=== PATIENT | male | born 1995 | race African-American/Black ===

== ENCOUNTER 2021-08-03 13:28 | Inpatient (IN) | payer MEDICARE, MEDICAID, SELFPAY ==
--- NOTE | 2021-08-03 14:04 | ED_ITS ---
HPI - Psych General Chief Complaint: Psychiatric Symptoms Stated Complaint: crisis Time Seen by Provider: 08/03/21 13:38 Source: patient and EMS Mode of arrival: EMS Limitations: no limitations History of Present Illness HPI Narrative: 25-year-old male with a past medical history of schizophrenia here with the reports of paranoia and homicidal ideations. Patient has been at respite and for unknown reasons he was evaluated by crisis today and was sent in on a Section 12. Patient tells me he always feels paranoid and always feels homicidal. He is not willing to tell me who he is feeling homicidal to. He denies suicidal thoughts. Denies hallucinations. He tells me he takes Thorazine for his mood but does not feel like he has a true diagnosis of schizophrenia. Denies any substance use. No physical complaints. Related Data Home Medications Medication Instructions Recorded Confirmed amoxicillin 250 mg capsule 1 cap PO TID 08/03/21 chlorpromazine 100 mg tablet 1 tab PO DAILY 08/03/21 08/03/21 chlorpromazine 100 mg tablet 2 tab PO BEDTIME 08/03/21 08/03/21 cholecalciferol (vitamin D3) 50 1 cap PO DAILY 08/03/21 08/03/21 mcg (2,000 unit) capsule (Vitamin D3) clonidine HCl 0.1 mg tablet 1 tab PO BEDTIME 08/03/21 08/03/21 cyanocobalamin (vitamin B-12) 1 tab PO DAILY 08/03/21 08/03/21 1,000 mcg tablet (Vitamin B-12) hydroxyzine pamoate 25 mg capsule 1 cap PO BID PRN 08/03/21 08/03/21 ibuprofen 800 mg tablet 1 tab PO Q8H PRN 08/03/21 melatonin 10 mg tablet 10 mg PO BEDTIME PRN 08/03/21 08/03/21 paliperidone palmitate 156 mg/mL 156 mg IM Q28D 08/03/21 08/03/21 intramuscular syringe (Invega Sustenna) Allergies Allergy/AdvReac Type Severity Reaction Status Date / Time trazodone [TRAZODONE] AdvReac Unknown CONFUSION Unverified 06/07/20 19:13 Review of Systems Review of Systems: Yes all other systems are reviewed and are negative Constitutional: Constitutional: Reports no additional constitutional complaints, Denies body ache(s), Denies chills, Denies fever(s), Denies headache(s) and Denies weakness Eyes: Eyes: Reports no additional eye complaints and Denies change in vision ENT: Reports system reviewed and no additional complaints, except as documented, Denies dizziness, Denies headache(s), Denies nasal congestion, Denies nasal discharge and Denies neck pain Cardiovascular: Cardiovascular: Reports no additional cardiovascular complaints, Denies chest pain, Denies leg edema and Denies dyspnea Respiratory: Respiratory: Reports no additional respiratory complaints, Denies cough and Denies dyspnea Gastrointestinal: Gastrointestinal: Reports no additional gastrointestinal complaints, Denies abdominal pain, Denies diarrhea, Denies nausea and Denies vomiting Genitourinary: Genitourinary: Denies urinary incontinence Musculoskeletal: Musculoskeletal: Reports no additional musculoskeletal complaints, Denies back pain, Denies arthralgias, Denies joint swelling, Denies neck pain, Denies numbness and Denies tingling Integumentary/Breasts: Skin/Breast: Reports system reviewed and no additional complaints, except as docu and Denies rash Neurologic: Reports system reviewed and no additional complaints, except as documented, Denies Abnormal speech present, Denies dizziness, Denies headache(s), Denies numbness, Denies tingling and Denies weakness Psychiatric: Psychiatric: Reports paranoia, Reports homicidal ideation and Denies suicidal ideation [facility] Past Medical History Attestation statement: The following information was validated with the patient. Source: old records reviewed and nursing notes reviewed Social History Social History Advance Directives: No Advance Directives Information Provided: No Physical Exam Vital Signs: Vital Signs: Last Vital Signs Temp 98.3 F 08/03/21 15:54 Pulse 85 08/03/21 15:54 Resp 20 08/03/21 15:54 BP 135/93 H 08/03/21 15:54 Pulse Ox 99 08/03/21 15:54 Body Mass Index 24.1 Const: General: cooperative, healthy appearing, comfortable and no acute distress Orientation/consciousness: patient oriented x3 Limitations: no limitations HENMT: Head: Yes normal to inspection Ears: hearing grossly normal bilaterally General nose exam: Normal external nose present Face and sinus: Yes normal facial exam Mouth: Normal oral and palatal mucosa present Throat: Yes posterior oropharynx normal Eyes: General: appearance normal, both eyes and all related structures Pupils: Equal, round and reactive pupils present Neck: Neck: Yes normal visual inspection Chest: Chest palpation & inspection: normal inspection of the chest Resp: Effort & Inspection: normal respiratory effort Auscultation: clear to auscultation bilaterally Cardio: Rate: regular rate Rhythm: regular rhythm Peripheral pulses: Peripheral pulses 2+ throughout GI: Inspection: Yes normal to inspection Palpation (GI): Soft to palpation and nontender Auscultation: normal bowel sounds Back/Spine/Pelvis: Thoracic/Lumbar Spine: thoracic and lumbar spine normal to inspection Skin: General skin exam: no rashes or lesions noted Neuro: General: patient oriented x3, no focal motor deficits and normal sensation to monofilament Cranial nerves: Yes CN's II-XII intact bilaterally and Yes Equal, round and reactive pupils present Cognition (Neuro): normal cognition Speech: No Abnormal speech present Gait exam (Neuro): Normal gait present Motor exam (neuro): 5/5 motor strength present throughout Extrem: General: Yes normal to inspection Psych: Other: Patient is withdrawn, flat affect Appearance: disheveled Course Course Course Narrative: 25-year-old male here with on a section 12 with reports of paranoia and homicidal ideation. No physical complaint. No concern for acute ingestion or trauma. Will check labs, drug screen, obtain crisis evaluation. 1930-placed in physician observation pending disposition/ [facility] - Psych Medical Records Attestation: I reviewed the patient's medical records. Lab Data Attestation: I reviewed the patient's lab results. Result diagrams: 08/03/21 14:14 08/03/21 14:14 Labs: Lab Results 08/03/21 08/03/21 08/03/21 Range/Units 14:04 14:14 14:14 WBC 7.6 (4.8-10.8) X10*3/uL RBC 4.62 (4.60-5.80) X10*6/uL Hgb 13.7 L (14.0-18.0) g/dl Hct 41.1 L (42.0-52.0) % MCV 89.0 (80.0-98.0) fL MCH 29.7 (27.0-33.0) pg MCHC 33.3 (31.0-36.0) g/dl RDW 11.9 (11.0-16.0) % Plt Count 341 (160-400) X10*3/uL MPV 8.7 L (9.4-12.4) fL Immature Gran % (Auto) 0.1 (0.0-0.4) % Neut % (Auto) 70.2 (45-73) % Lymph % (Auto) 23.4 (20-40) % [place] % (Auto) 5.8 (2-11) % Eos % (Auto) 0.4 (0-4) % Baso % (Auto) 0.1 (0-2) % Lymph # (Auto) 1.8 (1.2-4.9) X10*3/uL [place] # (Auto) 0.4 (0.1-1.2) X10*3/uL Eos # (Auto) 0.0 (0.0-0.4) X10*3/uL Baso # (Auto) 0.0 (0.0-0.2) X10*3/uL Abs Immat Gran (auto) 0.01 (0.00-0.03) X10*3/uL Absolute Neuts (auto) 5.4 (2.0-8.3) x10*3/uL Absolute Nucleated RBC 0.000 (0.0-0.012) X10*3/uL Nucleated RBC % (auto) 0.0 (0.0-0.2) /100WBC Sodium 142 (135-145) mmol/L Potassium 4.5 (3.3-5.1) mmol/L Chloride 103 (96-108) mmol/L Carbon Dioxide 30 H (22-29) mmol/L Anion Gap 14 (12-20) BUN 11 (9-16) mg/dL Creatinine 1.10 (0.5-1.4) mg/dL Estim Creat Clear Calc 85.9 Estimated GFR > 60 Random Glucose 90 (60-115) mg/dL Calcium 9.7 (8.4-10.2) mg/dL Total Bilirubin 0.5 (0.0-1.0) mg/dL Direct Bilirubin 0.2 (0.0-0.5) mg/dL AST 19 (5-37) U/L ALT 22 (0-40) U/L Alkaline Phosphatase 72 (39-117) U/L Total Protein 7.4 (6.5-8.0) g/dL Albumin 4.3 (3.5-5.0) g/dL Salicylates < 5.0 L (15-30) mg/dL Urine Opiates Screen Not Detected (Not Detect) Urine Fentanyl Screen Not Detected (Not Detect) Acetaminophen < 1 (<30) mcg/mL Ur Barbiturates Screen Not Detected (Not Detect) Ur Phencyclidine Scrn Not Detected (Not Detect) Ur Amphetamines Screen Not Detected (Not Detect) U Benzodiazepines Scrn Not Detected (Not Detect) Urine Cocaine Screen Not Detected (Not Detect) U Marijuana (THC) Screen Not Detected (Not Detect) Ethyl Alcohol mg/dL COVID-19 (TATO) (Negative) COVID-19 Clin Com 08/03/21 08/03/21 Range/Units 14:14 14:14 WBC (4.8-10.8) X10*3/uL RBC (4.60-5.80) X10*6/uL Hgb (14.0-18.0) g/dl Hct (42.0-52.0) % MCV (80.0-98.0) fL MCH (27.0-33.0) pg MCHC (31.0-36.0) g/dl RDW (11.0-16.0) % Plt Count (160-400) X10*3/uL MPV (9.4-12.4) fL Immature Gran % (Auto) (0.0-0.4) % Neut % (Auto) (45-73) % Lymph % (Auto) (20-40) % [place] % (Auto) (2-11) % Eos % (Auto) (0-4) % Baso % (Auto) (0-2) % Lymph # (Auto) (1.2-4.9) X10*3/uL [place] # (Auto) (0.1-1.2) X10*3/uL Eos # (Auto) (0.0-0.4) X10*3/uL Baso # (Auto) (0.0-0.2) X10*3/uL Abs Immat Gran (auto) (0.00-0.03) X10*3/uL Absolute Neuts (auto) (2.0-8.3) x10*3/uL Absolute Nucleated RBC (0.0-0.012) X10*3/uL Nucleated RBC % (auto) (0.0-0.2) /100WBC Sodium (135-145) mmol/L Potassium (3.3-5.1) mmol/L Chloride (96-108) mmol/L Carbon Dioxide (22-29) mmol/L Anion Gap (12-20) BUN (9-16) mg/dL Creatinine (0.5-1.4) mg/dL Estim Creat Clear Calc Estimated GFR Random Glucose (60-115) mg/dL Calcium (8.4-10.2) mg/dL Total Bilirubin (0.0-1.0) mg/dL Direct Bilirubin (0.0-0.5) mg/dL AST (5-37) U/L ALT (0-40) U/L Alkaline Phosphatase (39-117) U/L Total Protein (6.5-8.0) g/dL Albumin (3.5-5.0) g/dL Salicylates (15-30) mg/dL Urine Opiates Screen (Not Detect) Urine Fentanyl Screen (Not Detect) Acetaminophen (<30) mcg/mL Ur Barbiturates Screen (Not Detect) Ur Phencyclidine Scrn (Not Detect) Ur Amphetamines Screen (Not Detect) U Benzodiazepines Scrn (Not Detect) Urine Cocaine Screen (Not Detect) U Marijuana (THC) Screen (Not Detect) Ethyl Alcohol < 10 mg/dL COVID-19 (TATO) Negative (Negative) COVID-19 Clin Com See Note Discharge Plan Discharge Clinical Impression: Chronic schizophrenia Prescriptions: No Action clonidine HCl 0.1 mg tablet 1 tab PO BEDTIME RF: 0 ibuprofen 800 mg tablet 1 tab PO Q8H PRN (Reason: Pain) RF: 0 chlorpromazine 100 mg tablet 1 tab PO DAILY RF: 0 amoxicillin 250 mg capsule 1 cap PO TID RF: 0 hydroxyzine pamoate 25 mg capsule 1 cap PO BID PRN (Reason: Anxiety) RF: 0 Invega Sustenna 156 mg/mL syringe 156 mg IM Q28D RF: 0 chlorpromazine 100 mg tablet 2 tab PO BEDTIME RF: 0 cyanocobalamin (vitamin B-12) [Vitamin B-12] 1,000 mcg tablet 1 tab PO DAILY RF: 0 cholecalciferol (vitamin D3) [Vitamin D3] 50 mcg (2,000 unit) capsule 1 cap PO DAILY RF: 0 melatonin 10 mg Tablet 10 mg PO BEDTIME PRN (Reason: Insomnia) RF: 0
[2021-08-03 14:17] VITALS: BP 136/87; PULSE 90; RESP 16; TEMP 37.1; O2SAT 100; BMI 24.1
[2021-08-03 14:42] LABS: MANUAL DIFF FLAG NO
[2021-08-03 14:49] LABS: Basophils Percent Auto 0.1 % (0-2); Eosinophils Percent Auto 0.4 % (0-4); Hematocrit 41.1 % (42.0-52.0); Hemoglobin 13.7 g/dl (14.0-18.0); Imm Gran Abs Auto 0.01 X10*3/uL (0.00-0.03); Imm Gran Pct Auto 0.1 % (0.0-0.4); Lymphocytes Absolute Auto 1.8 X10*3/uL (1.2-4.9); Lymphocytes Percent Auto 23.4 % (20-40); Mean Corpuscular HGB Conc 33.3 g/dl (31.0-36.0); Mean Corpuscular Hemoglobin 29.7 pg (27.0-33.0); Mean Platelet Volume 8.7 fL (9.4-12.4); Monocytes Absolute Auto 0.4 X10*3/uL (0.1-1.2); Monocytes Percent Auto 5.8 % (2-11); Neutrophils Absolute Auto 5.4 x10*3/uL (2.0-8.3); Neutrophils Percent Auto 70.2 % (45-73); Platelet Count 341 X10*3/uL (160-400); Red Blood Count 4.62 X10*6/uL (4.60-5.80); Red Cell Distribution Width 11.9 % (11.0-16.0); White Blood Count 7.6 X10*3/uL (4.8-10.8)
[2021-08-03 15:03] LABS: Ethanol < 10 mg/dL
[2021-08-03 15:10] LABS: Amphetamine Screen Urine Not Detected (Not Detect); Barbiturates, Urine Not Detected (Not Detect); Benzodiazepines Screen Urine Not Detected (Not Detect); Cannabinoid Screen Urine Not Detected (Not Detect); Cocaine Screen Urine Not Detected (Not Detect); Fentanyl, urine Not Detected (Not Detect); Opiate Screen Urine Not Detected (Not Detect); Phencyclidine Screen Urine Not Detected (Not Detect)
[2021-08-03 15:14] LABS: Alanine Aminotransferase 22 U/L (0-40); Albumin Level 4.3 g/dL (3.5-5.0); Alkaline Phosphatase 72 U/L (39-117); Anion Gap 14 (12-20); Aspartate Amino Transferase 19 U/L (5-37); Bilirubin Direct 0.2 mg/dL (0.0-0.5); Bilirubin Total 0.5 mg/dL (0.0-1.0); Blood Urea Nitrogen 11 mg/dL (9-16); Calcium 9.7 mg/dL (8.4-10.2); Carbon Dioxide 30 mmol/L (22-29); Chloride 103 mmol/L (96-108); Creatinine Clr Calc Pharmacy 85.9; Estimated Glomerular Filt Rate > 60; Glucose Random 90 mg/dL (60-115); Potassium 4.5 mmol/L (3.3-5.1); Salicylate < 5.0 mg/dL (15-30); Sodium 142 mmol/L (135-145); Total Protein 7.4 g/dL (6.5-8.0)
[2021-08-03 15:26] LABS: COVID-19 Test Negative (Negative); IDNOW Serial# 9DD0AD1C
[2021-08-03 15:28] LABS: Acetaminophen LAB < 1 mcg/mL (<30)
--- NOTE | 2021-08-03 15:35 | PHA.MEDREC ---
Pharmacy Consult ? Medication Reconciliation Pharmacy has completed the medication reconciliation. Med rec was completed using respite form. Patient did fill an abx and ibuprofen, but is not confirming or denying it. Thanks Kiah Lopez Pharm D
[2021-08-03 15:54] VITALS: BP 135/93; PULSE 85; RESP 20; TEMP 36.8; O2SAT 99
[2021-08-03] MEDS: hydrOXYzine HCL 25 MG TABLET PO (16:15)
[2021-08-03] MEDS: chlorproMAZINE HCl 100 MG TABLET PO (16:15)
[2021-08-03] MEDS: Acetaminophen 325 MG TABLET 650 MG PO (17:59)
[2021-08-03 21:12] VITALS: BP 120/78; PULSE 79
[2021-08-03] MEDS: cloNIDine HCL 0.1 MG TABLET PO (21:12)
[2021-08-03] MEDS: chlorproMAZINE HCl 100 MG TABLET 200 MG PO (21:14)
[2021-08-03] MEDS: Melatonin 3 MG TABLET 9 MG PO (21:16)
[2021-08-03 21:18] VITALS: BP 120/78; PULSE 79; RESP 16; TEMP 36.6; O2SAT 99
[2021-08-04 00:02] VITALS: RESP 16
[2021-08-04 00:04] VITALS: PULSE 16
[2021-08-04 06:29] VITALS: BP 120/74; PULSE 78; RESP 16; TEMP 36.8; O2SAT 96
[2021-08-04] MEDS: Cyanocobalamin (Vitamin B-12) 1,000 MCG TABLET 1000 MCG PO (07:55)
[2021-08-04] MEDS: Cholecalciferol (Vitamin D3) 25 MCG TABLET 50 MCG PO (07:55)
[2021-08-04] MEDS: chlorproMAZINE HCl 100 MG TABLET PO (07:55)
[2021-08-04] MEDS: hydrOXYzine HCL 25 MG TABLET PO ×2 (07:58→20:31)
[2021-08-04] MEDS: OLANZapine 10 MG TABLET PO (08:17)
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
[2021-08-04] MEDS: Acetaminophen 325 MG TABLET 650 MG PO ×2 (13:44→18:56)
[2021-08-04 16:24] VITALS: BP 119/73; PULSE 84; RESP 20; TEMP 37.1; O2SAT 99
--- NOTE | 2021-08-04 18:58 | PC.NURSE ---
pt approaching nurses station, asking for tylenol for mouth pain and his PRN. pt with slight irritability that he did not have a PRN available at this time. informed of when his PRN is due next, pt attempting to disagree with t/w, that in respite he could get his PRN three times a day whenever he wanted, not timed . tp educated r/t medication admin. informed he can get the PRN at 2100. pt returned to his room at this time.
[2021-08-04 20:31] VITALS: BP 119/73; PULSE 84
[2021-08-04] MEDS: cloNIDine HCL 0.1 MG TABLET PO (20:31)
[2021-08-04] MEDS: chlorproMAZINE HCl 100 MG TABLET 200 MG PO (20:31)
[2021-08-04] MEDS: Melatonin 3 MG TABLET 9 MG PO (20:31)
[2021-08-04] MEDS: Calcium Carbonate 750 MG TAB.CHEW PO (23:34)
[2021-08-04 23:47] VITALS: BP 127/74; PULSE 81; RESP 17; TEMP 36.4; O2SAT 97
--- NOTE | 2021-08-05 | ECG_ITS ---
Test Reason : MEDCLEARANCE Blood Pressure : / mmHG Vent. Rate : 094 BPM Atrial Rate : 094 BPM P-R Int : 120 ms QRS Dur : 074 ms QT Int : 338 ms P-R-T Axes : 053 070 051 degrees QTc Int : 422 ms Normal sinus rhythm Normal ECG When compared with ECG of 16-APR-2017 14:50, No significant change was found Heart rate has increased Referred By: Generic ED Physician Electronically Signed By:MICHI PICKETT MD
[2021-08-05] MEDS: Acetaminophen 325 MG TABLET 650 MG PO ×2 (05:31→11:48)
--- NOTE | 2021-08-05 06:36 | PC.NURSE ---
Patient slept through the night, complain of HUITRON administered Tylenol 650 mg as ordered with + effect, behavior calm and quiet, mood depressed affect flat, medication compliant, disposition per [facility] is section 12 inpatient bed search with no update so far, VSS, will continue to monitor.
--- NOTE | 2021-08-05 07:35 | PC.NURSE ---
patient appears in no distress, respirations are even and unlabored patient appears in no distress
[2021-08-05] MEDS: Cholecalciferol (Vitamin D3) 25 MCG TABLET 50 MCG PO (08:23)
[2021-08-05] MEDS: Cyanocobalamin (Vitamin B-12) 1,000 MCG TABLET 1000 MCG PO (08:23)
[2021-08-05] MEDS: chlorproMAZINE HCl 100 MG TABLET PO (08:23)
[2021-08-05] MEDS: hydrOXYzine HCL 25 MG TABLET PO ×2 (08:27→20:50)
[2021-08-05 09:13] VITALS: BP 111/62; PULSE 88; TEMP 36.9; O2SAT 99
[2021-08-05] MEDS: Calcium Carbonate 750 MG TAB.CHEW PO (09:44)
[2021-08-05] MEDS: Acetaminophen 325 MG TABLET PO ×2 (14:21→18:40)
--- NOTE | 2021-08-05 15:18 | PC.NURSE ---
patient asked t/w to verify a script sent to [facility]
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
[2021-08-05 18:00] VITALS: RESP 18
[2021-08-05] MEDS: Ibuprofen 600 MG TABLET PO (18:43)
[2021-08-05] MEDS: Melatonin 3 MG TABLET 9 MG PO (20:50)
[2021-08-05] MEDS: cloNIDine HCL 0.1 MG TABLET PO (20:50)
[2021-08-05] MEDS: chlorproMAZINE HCl 100 MG TABLET 200 MG PO (20:50)
[2021-08-05 20:56] VITALS: BP 126/67; PULSE 73; RESP 18; TEMP 36.6; O2SAT 98
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
[2021-08-06 06:00] VITALS: BP 112/62; PULSE 96; RESP 16; TEMP 36.8; O2SAT 96
[2021-08-06] MEDS: Cholecalciferol (Vitamin D3) 25 MCG TABLET 50 MCG PO (08:31)
[2021-08-06] MEDS: Cyanocobalamin (Vitamin B-12) 1,000 MCG TABLET 1000 MCG PO (08:31)
[2021-08-06] MEDS: chlorproMAZINE HCl 100 MG TABLET PO (08:31)
--- NOTE | 2021-08-06 09:52 | MHC.CLN ---
Addendum entered by Jaclyn Rodriguez, ADRIANA 08/06/21 14:51: AGREE WITH PROVIDER'S ASSESSMENT BELOW WITH ADDITION OF BMI 24.1 WNL Original Note: RE: UNSURE WT LOSS PT STATES HE RECENTLY LOST 50 POUNDS PER NSG NOTE: He said he recently lost 50 pounds because I've been working two jobs at [employer] and [employer], I don't really have time to eat. But I'm gaining the weight back so it doesn't matter. WT FROM 2018 WAS 120 POUNDS (HE IS CURRENTLY 140 POUNDS) UNABLE TO PERFORM NFPE R/T PT'S THREATENING BEHAVIOR
[2021-08-06] MEDS: Ibuprofen 800 MG TABLET PO ×2 (11:43→20:46)
[2021-08-06] MEDS: LORazepam 1 MG TABLET PO ×3 (11:43→20:48)
--- NOTE | 2021-08-06 11:55 | PC.NURSE ---
Patient submitted 3 day notice.
[2021-08-06] MEDS: hydrOXYzine HCL 25 MG TABLET PO (13:38)
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
[2021-08-06] MEDS: chlorproMAZINE HCl 25 MG TABLET 50 MG PO ×2 (14:22→19:12)
[2021-08-06] MEDS: Acetaminophen 325 MG TABLET 650 MG PO (17:30)
[2021-08-06] MEDS: chlorproMAZINE HCl 100 MG TABLET 200 MG PO (20:46)
[2021-08-06 20:47] VITALS: BP 119/70; PULSE 101
[2021-08-06] MEDS: cloNIDine HCL 0.1 MG TABLET PO (20:47)
[2021-08-06] MEDS: Melatonin 3 MG TABLET 9 MG PO (20:48)
[2021-08-06 20:52] VITALS: BP 119/70; PULSE 101; TEMP 36.8; O2SAT 98
[2021-08-07] MEDS: hydrOXYzine HCL 50 MG TABLET PO ×2 (01:20→14:58)
[2021-08-07] MEDS: chlorproMAZINE HCl 25 MG TABLET 50 MG PO ×2 (01:20→12:32)
[2021-08-07 06:00] VITALS: BP 97/52; PULSE 86; RESP 99; TEMP 36.7; O2SAT 99
[2021-08-07] MEDS: Cholecalciferol (Vitamin D3) 25 MCG TABLET 50 MCG PO (08:31)
[2021-08-07] MEDS: LORazepam 1 MG TABLET PO ×4 (08:31→23:28)
[2021-08-07] MEDS: Cyanocobalamin (Vitamin B-12) 1,000 MCG TABLET 1000 MCG PO (08:31)
[2021-08-07] MEDS: chlorproMAZINE HCl 100 MG TABLET PO (08:31)
[2021-08-07] MEDS: Ibuprofen 800 MG TABLET PO ×2 (12:32→21:27)
[2021-08-07] MEDS: hydrOXYzine HCL 25 MG TABLET 75 MG PO (12:32)
--- NOTE | 2021-08-07 12:42 | HO.PSYCHPN ---
Subjective Subjective Date of Service: 08/07/21 Reason For Visit: Psychosis Interim History: found found in bed under covers, somnolent. states he is trying to put himself to sleep but the thorazine PRN did not do it. he declines a higher dose of thorazine PRN, however, and asks for a higher dose of hydroxyzine PRN. agrees. MD offers to give invega shot today, pt states he will wait until tomorrow. pt declines to answer further questions from , replying, thank you (interpreted to also mean good bye by this lyric writer) to several more questions about how his level of paranoia is compared with yesterday, etc. per staff, 3-day submitted yesterday, comes due thursday. anxious and paranoid. minor self-dialoguing. mistrustful of staff. using hydroxyzine and thorazine PRNs. slept reasonably well. Mental Status Exam Mental Status Exam Narrative: A&O. In bed, under covers, hair long, somnolent. Poor eye contact, inattentive. No Tics or Tremors. No abnormal involuntary movements. Withdrawn, suspicious, difficult to engage. Non-pressured speech, non-spontaneous with regular rate and rhythm, quiet volume and normal prosody. No prolonged speech latency or dysarthria. affect is blunted, hypo-intense, non-labile. no SI/HI/AVH expressed in brief interview. Diagnostics Vital Signs (24Hr): Vital Signs - 24 hr 08/06/21 20:47 08/06/21 20:52 08/07/21 06:00 Temperature 98.3 F 98.0 F Pulse Rate 101 H 101 H 86 Respiratory Rate 99 H Blood Pressure 119/70 119/70 97/52 L Pulse Oximetry 98 99 Body Mass Index 24.1 Labs Results: 08/03/21 14:14 08/03/21 14:14 Medications Medications Current Medications Acetaminophen (Acetaminophen 325 Mg Tablet) 650 mg PO Q6H PRN PRN Reason: Headache/Pain Mild Scale (1-3) Last Admin: 08/06/21 17:30 Dose: 650 mg Documented by: Al Hydroxide/Mg Hydroxide (Magnesium Hydrox/Alum Hydrox 30 Ml Oral.Susp) 30 ml PO Q6H PRN PRN Reason: Heartburn/Nausea Amoxicillin (Amoxicillin 250 Mg Capsule) 250 mg PO TID [facility] Stop: 08/09/21 20:59 Last Admin: 08/07/21 08:31 Dose: 250 mg Documented by: Calcium Carbonate (Calcium Carbonate 750 Mg Tab.Chew) 750 mg PO Q6H PRN PRN Reason: Heartburn Chlorpromazine HCl (Chlorpromazine Hcl 100 Mg Tablet) 100 mg PO DAILY [facility] Last Admin: 08/07/21 08:31 Dose: 100 mg Documented by: Chlorpromazine HCl (Chlorpromazine Hcl 100 Mg Tablet) 200 mg PO BEDTIME [facility] Last Admin: 08/06/21 20:46 Dose: 200 mg Documented by: Chlorpromazine HCl (Chlorpromazine Hcl 25 Mg Tablet) 50 mg PO Q4H PRN PRN Reason: paranoia Last Admin: 08/07/21 12:32 Dose: 50 mg Documented by: Clonidine HCl (Clonidine Hcl 0.1 Mg Tablet) 0.1 mg PO BEDTIME [facility]; Protocol Last Admin: 08/06/21 20:47 Dose: 0.1 mg Documented by: Cyanocobalamin (Cyanocobalamin (Vitamin B-12) 1,000 Mcg Tablet) 1,000 mcg PO DAILY [facility] Last Admin: 08/07/21 08:31 Dose: 1,000 mcg Documented by: Hydroxyzine HCl (Hydroxyzine Hcl 25 Mg Tablet) 75 mg PO Q4H PRN PRN Reason: Anxiety Last Admin: 08/07/21 12:32 Dose: 75 mg Documented by: Ibuprofen (Ibuprofen 800 Mg Tablet) 800 mg PO Q8H PRN PRN Reason: dental pain Last Admin: 08/07/21 12:32 Dose: 800 mg Documented by: Lorazepam (Lorazepam 1 Mg Tablet) 1 mg PO TID [facility] Last Admin: 08/07/21 08:31 Dose: 1 mg Documented by: Magnesium Hydroxide (Milk Of Magnesia 30 Ml Oral.Susp) 30 ml PO DAILY PRN PRN Reason: Constipation Melatonin (Melatonin 3 Mg Tablet) 10.5 mg PO BEDTIME PRN PRN Reason: Insomnia Nicotine Polacrilex (Nicotine Polacrilex 2 Mg Gum) 4 mg BUCCAL Q2H PRN PRN Reason: Nicotine Cravings Paliperidone Palmitate (Paliperidone Palmitate 234 Mg/1.5 Ml Syringe) 234 mg IM Q28D [facility] Vitamin D (Cholecalciferol (Vitamin D3) 25 Mcg Tablet) 50 mcg PO DAILY [facility] Last Admin: 08/07/21 08:31 Dose: 50 mcg Documented by: Allergies Allergies Allergy/AdvReac Type Severity Reaction Status Date / Time trazodone [TRAZODONE] AdvReac Unknown CONFUSION Unverified 06/07/20 19:13 Assessment & Plan Assessment & Plan (1) Chronic schizophrenia: Status: Acute Code(s): F20.9 - Schizophrenia, unspecified Assessment and Plan: No med changes were made during recent respite admission. Pt is on invega sustenna 156 mg [id number], next injection due 08/08/21. agrees to ativan 1 TID, thorazine 50 mg PRNs, and atarax 50 mg PRNs on first day in hospital, 08/06. also agrees to increase invega sustenna dosing to 234 mg as of 08/08. hydroxyzine PRNs increased to 75 mg each 08/07 per pt request. remains very delusional and paranoid, with threat delusions and h/o violence based on delusions. I spent minutes with the patient and/or on the patient floor today, greater than?50% of which was spent counseling/coordinating care. Reason for contiued inpatient stay Substantial Risk for: harm to others, inability to function and rapid decompensation
[2021-08-07] MEDS: Acetaminophen 325 MG TABLET 650 MG PO ×2 (13:15→23:27)
[2021-08-07] MEDS: OLANZapine 5 MG TABLET PO (14:57)
[2021-08-07] MEDS: chlorproMAZINE HCl 100 MG TABLET 200 MG PO ×2 (14:58→22:02)
[2021-08-07] MEDS: LORazepam 1 MG TABLET 2 MG PO (14:58)
[2021-08-07] MEDS: QUEtiapine Fumarate 50 MG TABLET PO (14:58)
--- NOTE | 2021-08-07 19:47 | PC.NURSE ---
Patient noticeably more anxious/paranoid/suspicious following interaction with dietary staff trying to obtain his lunch order. Patient was hostile, requested to enter own lunch order on computer pad, dismissed staff from his room. Auction Assistant approached patient, able to complete lunch request, offered PRN medication Thorazine 50mg and Atarax 75 mg. Patient accepted medication however continued to escalate as afternoon progressed. Patient continued paranoid, suspicious, demanding. Angry photographs of his mother were not in his wallet accusing staff of loosing them, verbally threatening stating those pictures mean more to me than life itself I want someone to feel the pain I feel. I will kill someone . Patient placed call to respite, stated they were kicking him out, packed up his belongings but would not go through his belongings to see if his pictures were there . Patient continued to escalate, demanding to see the doctor I haven't seen the doctor today I want to get out of here . Patient proceeded to punch wall, hit petition in phone area. Pushing exit doors in effort to elope from unit. MD notified of patient request, arrived to unit to speak with patient. Patient jumped on nursing station petition while community placement worker was speaking to providers. Security called to assist with patient. director of nursing informed patient he was able to return to respite. Patient requested and received multiple medications 1458 per MD order. Patient continued agitated, pushing on hallway doors, ambulating about unit. Went to room, attempted to barricade self in room, chairs removed from patient room. Patient continued restless, agitated although calmer as evening progressed. Observed to be sleeping approx 1800. sewage disposal worker from [facility] dropped off pictures of mother, placed in patient belonging bag in storage area.
--- NOTE | 2021-08-07 20:25 | PC.NURSE ---
report received. patient is in bed sleeping. snoring noted.
[2021-08-07] MEDS: Calcium Carbonate 750 MG TAB.CHEW PO (21:27)
[2021-08-07 22:00] VITALS: BP 138/81; PULSE 107; TEMP 36.2; O2SAT 99
[2021-08-07] MEDS: cloNIDine HCL 0.1 MG TABLET PO (22:00)
[2021-08-07] MEDS: Melatonin 3 MG TABLET 10.5 MG PO (22:02)
[2021-08-07 22:08] VITALS: BP 138/81; PULSE 107; TEMP 36.2; O2SAT 96
[2021-08-07 22:30] VITALS: BP 131/86; PULSE 107; O2SAT 100
--- NOTE | 2021-08-07 22:42 | PC.NURSE ---
chair restraint-placed in chair restraint at 2144. Patient woke up from a nap at 2109. Upon rising patient was tense. Reported continued paranoia ''I'm always paranoid'' Requesting something to eat and when offered foods available at this time became verbally upset with options offered. Due to presentation security called to unit. Initially responded well to security when attempting to problem solve how to obtain food from an outside sourse. Offered local options but declined and wanted to order from a specific restaurant but could not call in orders. Was allowed to use cell phone to access information. Pt became upset when order could not be placed stating it needed to be ordered on an sherlyn. Patient then began hitting hope near the patient phone area and slamming down handset of patient phone. Patient was loud and aggressive. Security took control of his flailing arms and escorted patient to his room. Plan that was stated out loud for patient and security to hear was to escort patient to his room and release his arms when in room. When arms released patient began to swing out at security and would not stop. Due to persistent behavior placed in restraint chair. When in restraint chair security asked to leave. Patient spoke with RN's about continued feelings of paranoia, wanting to eat and pain related to dental issues. Patient spoke about continued feelings of paranoia. Offered and accepted HS scheduled medications. Patient was released from restraints when breathing was in control and reported that he would ''not hurt anyone'' Allowed for metal engraver as well as VS to be taken. When able to express need to order food and how to do so was assisted by staff to obtain and receive order. Patient did not struggle when being placed in restraint chair nor did he when he was released. Hospitalist is aware of need for assessment and will do so when work load allows to do so. Is reporting continued tooth pain (is on antibiotic and motrin) and requested heated blanket due to muscle aches.
[2021-08-07 23:00] VITALS: BP 133/84; PULSE 89; O2SAT 99
[2021-08-07] MEDS: diphenhydrAMINE HCL 25 MG TABLET 50 MG PO (23:27)
[2021-08-07 23:50] VITALS: BP 133/81; PULSE 88; TEMP 36.6; O2SAT 99
[2021-08-07] MEDS: Baclofen 10 MG TABLET PO (23:56)
--- NOTE | 2021-08-08 01:46 | PC.NURSE ---
MD assessment. after chair restraint which was from 2144 to 2209 patient was seen by hospitalist and allowed VS to be taken. received food order. patient reported that ''sometime I lose it'' ''I sometimes feel like I don't have any control of my life'' verbalized concern about ''my bed being given away at respite'' and process reviewed as to need for mood stabilization and then referral to respite. also spoke about concerns about returning to work reporting multiple jobs at [employer] reporting ''[employer] is great but I'm on probation at [employer]'' ''I need my jobs'' patient was apologetic and thanked staff for spending time with him. patient continues with ''paranoid thoughts'' ''I don't feel like i can ever trust anyone, even you''
[2021-08-08 09:30] VITALS: BP 113/71; PULSE 84; RESP 18; TEMP 36.7; O2SAT 98
[2021-08-08] MEDS: Ibuprofen 800 MG TABLET PO ×2 (09:33→16:24)
[2021-08-08] MEDS: Cyanocobalamin (Vitamin B-12) 1,000 MCG TABLET 1000 MCG PO (09:35)
[2021-08-08] MEDS: Cholecalciferol (Vitamin D3) 25 MCG TABLET 50 MCG PO (09:35)
[2021-08-08] MEDS: LORazepam 1 MG TABLET PO ×2 (09:35→15:21)
[2021-08-08] MEDS: chlorproMAZINE HCl 100 MG TABLET PO (09:35)
[2021-08-08] MEDS: Acetaminophen 325 MG TABLET 975 MG PO (13:19)
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
[2021-08-08] MEDS: chlorproMAZINE HCl 25 MG TABLET 50 MG PO (16:24)
[2021-08-08] MEDS: chlorproMAZINE HCl 100 MG TABLET 300 MG PO (16:45)
[2021-08-08] MEDS: LORazepam 1 MG TABLET 2 MG PO (16:46)
[2021-08-08] MEDS: Baclofen 10 MG TABLET PO (19:07)
[2021-08-08 22:13] VITALS: RESP 16
[2021-08-09] MEDS: chlorproMAZINE HCl 100 MG TABLET 200 MG PO (01:19)
[2021-08-09 01:20] VITALS: BP 125/86; PULSE 100
[2021-08-09] MEDS: Ibuprofen 800 MG TABLET PO ×3 (01:20→17:09)
[2021-08-09] MEDS: cloNIDine HCL 0.1 MG TABLET PO ×2 (01:20→20:04)
[2021-08-09] MEDS: Melatonin 3 MG TABLET 10.5 MG PO ×2 (01:21→20:12)
[2021-08-09] MEDS: LORazepam 1 MG TABLET PO ×4 (01:21→20:03)
[2021-08-09] MEDS: diphenhydrAMINE HCL 25 MG TABLET 50 MG PO ×2 (01:21→20:04)
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
[2021-08-09 09:58] VITALS: BP 120/81; PULSE 108; RESP 16; TEMP 36.7; O2SAT 99
[2021-08-09] MEDS: chlorproMAZINE HCl 100 MG TABLET PO ×2 (10:01→17:09)
[2021-08-09] MEDS: Cholecalciferol (Vitamin D3) 25 MCG TABLET 50 MCG PO (10:01)
[2021-08-09] MEDS: Cyanocobalamin (Vitamin B-12) 1,000 MCG TABLET 1000 MCG PO (10:02)
[2021-08-09] MEDS: Paliperidone Palmitate 234 MG/1.5 ML SYRINGE IM (10:18)
--- NOTE | 2021-08-09 14:02 | HO.PSYCHPN ---
Subjective Subjective Date of Service: 08/09/21 Reason For Visit: Psychosis Interim History: pt willing to receive IM invega 234 mg, given today. wanting to leave the hospital today, c/o feeling bored. somewhat labile and irritable, begins banging his head lightly against the wall and ends up yelling at MD and ronni delaney, then walks off down the [place]. later called by YASHIRA houston to meet with her and pt per pt's request. pt asks that if he retracts his 3-day notice and exhibits no violence between now and thursday morning, will MD discharge him. MD agrees, provided his outpt team is willing to accept him, which they are, according to report by YASHIRA. interview ended, pt retracts 3-day. pt then approaches MD and calls MD an asshole for knowing MD would not discharge him today and not telling him that yesterday. MD responds that MD did inform pt repeatedly yesterday that MD did not feel comfortable discharging pt today. per staff, less anxious and paranoid. worried about losing his job. slept 8-1, up for a time at 1:30, then back to sleep. Mental Status Exam Mental Status Exam Narrative: A&O. up and about on the unit. fair eye contact, attentive. No Tics or Tremors. No abnormal involuntary movements. suspicious, difficult to engage. Non-pressured speech, spontaneous with regular rate and rhythm, normal volume and normal prosody. No prolonged speech latency or dysarthria. affect is constricted, variably intense, labile. no SI/HI/AVH expressed. Diagnostics Vital Signs (24Hr): Vital Signs - 24 hr 08/08/21 22:13 08/09/21 01:20 08/09/21 09:58 Temperature 98.1 F Pulse Rate 100 108 H Respiratory Rate 16 16 Blood Pressure 125/86 120/81 Pulse Oximetry 99 Body Mass Index 24.1 Labs Results: 08/03/21 14:14 08/03/21 14:14 Medications Medications Current Medications Acetaminophen (Acetaminophen 325 Mg Tablet) 975 mg PO Q6H PRN PRN Reason: Headache/Pain Mild Scale (1-3) Last Admin: 08/08/21 13:19 Dose: 975 mg Documented by: Al Hydroxide/Mg Hydroxide (Magnesium Hydrox/Alum Hydrox 30 Ml Oral.Susp) 30 ml PO Q6H PRN PRN Reason: Heartburn/Nausea Amoxicillin (Amoxicillin 250 Mg Capsule) 250 mg PO TID [facility] Stop: 08/09/21 20:59 Last Admin: 08/09/21 10:01 Dose: 250 mg Documented by: Calcium Carbonate (Calcium Carbonate 750 Mg Tab.Chew) 750 mg PO Q6H PRN PRN Reason: Heartburn Last Admin: 08/07/21 21:27 Dose: 750 mg Documented by: Chlorpromazine HCl (Chlorpromazine Hcl 100 Mg Tablet) 100 mg PO DAILY [facility] Last Admin: 08/09/21 10:01 Dose: 100 mg Documented by: Chlorpromazine HCl (Chlorpromazine Hcl 25 Mg Tablet) 50 mg PO Q4H PRN PRN Reason: paranoia Last Admin: 08/08/21 16:24 Dose: 50 mg Documented by: Chlorpromazine HCl (Chlorpromazine Hcl 100 Mg Tablet) 300 mg PO BEDTIME [facility] Chlorpromazine HCl (Chlorpromazine Hcl 100 Mg Tablet) 100 mg PO DAILY@1500 [facility] Clonidine HCl (Clonidine Hcl 0.1 Mg Tablet) 0.1 mg PO BEDTIME [facility]; Protocol Last Admin: 08/09/21 01:20 Dose: 0.1 mg Documented by: Cyanocobalamin (Cyanocobalamin (Vitamin B-12) 1,000 Mcg Tablet) 1,000 mcg PO DAILY [facility] Last Admin: 08/09/21 10:02 Dose: 1,000 mcg Documented by: Diphenhydramine HCl (Diphenhydramine Hcl 25 Mg Tablet) 50 mg PO BEDTIME PRN PRN Reason: inaomnia Last Admin: 08/09/21 01:21 Dose: 50 mg Documented by: Ibuprofen (Ibuprofen 800 Mg Tablet) 800 mg PO Q8H [facility] Last Admin: 08/09/21 10:02 Dose: 800 mg Documented by: Lorazepam (Lorazepam 1 Mg Tablet) 1 mg PO TID [facility] Last Admin: 08/09/21 10:02 Dose: 1 mg Documented by: Magnesium Hydroxide (Milk Of Magnesia 30 Ml Oral.Susp) 30 ml PO DAILY PRN PRN Reason: Constipation Melatonin (Melatonin 3 Mg Tablet) 10.5 mg PO BEDTIME PRN PRN Reason: Insomnia Last Admin: 08/09/21 01:21 Dose: 10.5 mg Documented by: Nicotine Polacrilex (Nicotine Polacrilex 2 Mg Gum) 4 mg BUCCAL Q2H PRN PRN Reason: Nicotine Cravings Vitamin D (Cholecalciferol (Vitamin D3) 25 Mcg Tablet) 50 mcg PO DAILY [facility] Last Admin: 08/09/21 10:01 Dose: 50 mcg Documented by: Allergies Allergies Allergy/AdvReac Type Severity Reaction Status Date / Time trazodone [TRAZODONE] AdvReac Unknown CONFUSION Unverified 06/07/20 19:13 Assessment & Plan Assessment & Plan (1) Chronic schizophrenia: Status: Acute Code(s): F20.9 - Schizophrenia, unspecified Assessment and Plan: No med changes were made during recent respite admission. Pt is on invega sustenna 156 mg [id number], next injection due 08/08/21. agrees to ativan 1 TID, thorazine 50 mg PRNs, and atarax 50 mg PRNs on first day in hospital, 08/06. also agrees to increase invega sustenna dosing to 234 mg as of 08/08. hydroxyzine PRNs increased to 75 mg each 08/07 per pt request. due to c/o blurry vision, hydroxyzine DC'ed as of 08/08. as of 08/09, thorazine dosing increased. sustenna 234 mg given 08/09. remains very delusional and paranoid, with threat delusions and h/o violence based on delusions. I spent minutes with the patient and/or on the patient floor today, greater than?50% of which was spent counseling/coordinating care. Reason for contiued inpatient stay Substantial Risk for: harm to others, inability to function and rapid decompensation
--- NOTE | 2021-08-09 14:43 | PC.NURSE ---
Patient was visibly upset and emotional during parts of the shift due to being told he would not be discharged today. Patient was verbally upset, but remained in behavioral control. Patient talked to staff members and made phone calls to [facility] and [facility] personal. Patient observed in room majority of shift after being told this information.
[2021-08-09] MEDS: chlorproMAZINE HCl 100 MG TABLET 300 MG PO (20:03)
[2021-08-09 20:04] VITALS: BP 151/76; PULSE 125
[2021-08-09 20:10] VITALS: BP 151/76; PULSE 125; RESP 20; TEMP 36.6; O2SAT 95
[2021-08-10] MEDS: Magnesium Hydrox/Alum Hydrox 30 ML ORAL.SUSP PO (03:19)
[2021-08-10] MEDS: Calcium Carbonate 750 MG TAB.CHEW PO (03:19)
--- NOTE | 2021-08-10 06:12 | PC.NURSE ---
Patient awake at 0600. Patient reported that he had a bad dream where the voices where telling him he should not be here in the hospital. Patient stated that no one cares about him. Patient gently banged head against the wall twice then walked to his room and climbed back into bed.
--- NOTE | 2021-08-10 07:36 | PC.NURSE ---
patient continues upset with continued hospitalization. reports having nightmares and experiencing hallucinations in which patient states ''that's not normal for me'' ''i feel like I have no control and that everyone thinks they know what's best for me'' able to express self ''I know I need to keep it together so I can leave Thursday''
[2021-08-10] MEDS: Ibuprofen 800 MG TABLET PO ×2 (08:42→16:26)
[2021-08-10] MEDS: LORazepam 1 MG TABLET PO ×3 (08:42→20:27)
[2021-08-10] MEDS: Cyanocobalamin (Vitamin B-12) 1,000 MCG TABLET 1000 MCG PO (08:42)
[2021-08-10] MEDS: Cholecalciferol (Vitamin D3) 25 MCG TABLET 50 MCG PO (08:42)
[2021-08-10] MEDS: chlorproMAZINE HCl 100 MG TABLET PO (08:43)
[2021-08-10 16:28] VITALS: BP 135/78; PULSE 119; RESP 16; TEMP 36.5; O2SAT 99
[2021-08-10] MEDS: Acetaminophen 325 MG TABLET 975 MG PO (17:51)
[2021-08-10] MEDS: Benzocaine 20 % Oral Gel 9 GM TUBE 1 APPL MUCOUS MEM ×2 (17:51→19:06)
[2021-08-10] MEDS: chlorproMAZINE HCl 25 MG TABLET 50 MG PO (18:29)
[2021-08-10] MEDS: chlorproMAZINE HCl 100 MG TABLET 300 MG PO (20:26)
[2021-08-10 20:28] VITALS: BP 122/69; PULSE 94
[2021-08-10] MEDS: cloNIDine HCL 0.1 MG TABLET PO (20:28)
[2021-08-10 20:32] VITALS: BP 122/69; PULSE 94; TEMP 37.1; O2SAT 98
[2021-08-10] MEDS: Melatonin 3 MG TABLET 10.5 MG PO (20:36)
--- NOTE | 2021-08-10 20:41 | PC.NURSE ---
HS THORAZINE-ONLY TOOK 200 MG OF 300 MG PRESCRIBE THORAZINE. REPORTS THAT IT CAUSES HIM TO BE TOO SEDATED.
--- NOTE | 2021-08-10 23:57 | HO.PSYCHPN ---
Subjective Subjective Date of Service: 08/10/21 Reason For Visit: Psychosis Interim History: Seen and discussed with team. Pt received Invega Sustena yesterday. He continues to feel irritable. He is focused on DC. He says the medications he gets (Thorazine) makes him hallucinate. He reports he was seeing a dog. He has not been aggressive today. He seems on edge. This service writer told patient that primary team will make final decision re discharge. Denies SI. 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, headache GI: No c/o Nausea, Vomiting, diarrhea, constipation or heartburn -Denies hx of seizures -Denies hx of TBI/ concussion -Denies hx of cardiac issues Yes all other systems are reviewed and are negative Constitutional: Reports no additional constitutional complaints, Denies body ache(s), Denies chills, Denies fever(s), Denies headache(s) and Denies weakness Eyes: Reports no additional eye complaints and Denies change in vision Reports system reviewed and no additional complaints, except as documented, Denies dizziness, Denies headache(s), Denies nasal congestion, Denies nasal discharge and Denies neck pain Cardiovascular: Reports no additional cardiovascular complaints, Denies chest pain, Denies leg edema and Denies dyspnea Respiratory: Reports no additional respiratory complaints, Denies cough and Denies dyspnea Gastrointestinal: Reports no additional gastrointestinal complaints, Denies abdominal pain, Denies diarrhea, Denies nausea and Denies vomiting Genitourinary: Denies urinary incontinence Musculoskeletal: Reports no additional musculoskeletal complaints, Denies back pain, Denies arthralgias, Denies joint swelling, Denies neck pain, Denies numbness and Denies tingling Skin/Breast: Reports system reviewed and no additional complaints, except as docu and Denies rash Reports system reviewed and no additional complaints, except as documented, Denies Abnormal speech present, Denies dizziness, Denies headache(s), Denies numbness, Denies tingling and Denies weakness Psychiatric: Reports paranoia, Reports homicidal ideation and Denies suicidal ideation Mental Status Exam Mental Status Exam Narrative: A&O. up and about on the unit. fair eye contact, attentive. No Tics or Tremors. No abnormal involuntary movements. Irritable, suspicious, difficult to engage. Non-pressured speech, spontaneous with regular rate and rhythm, normal volume and normal prosody. No prolonged speech latency or dysarthria. affect is constricted, variably intense, labile. no SI/HI/AVH expressed. Diagnostics Vital Signs (24Hr): Vital Signs - 24 hr 08/10/21 16:28 08/10/21 20:28 08/10/21 20:32 Temperature 97.7 F 98.7 F Pulse Rate 119 H 94 94 Respiratory Rate 16 Blood Pressure 135/78 122/69 122/69 Pulse Oximetry 99 98 Body Mass Index 24.1 Labs Results: 08/03/21 14:14 08/03/21 14:14 Medications Medications Current Medications Acetaminophen (Acetaminophen 325 Mg Tablet) 975 mg PO Q6H PRN PRN Reason: Headache/Pain Mild Scale (1-3) Last Admin: 08/10/21 17:51 Dose: 975 mg Documented by: Al Hydroxide/Mg Hydroxide (Magnesium Hydrox/Alum Hydrox 30 Ml Oral.Susp) 30 ml PO Q6H PRN PRN Reason: Heartburn/Nausea Last Admin: 08/10/21 03:19 Dose: 30 ml Documented by: Benzocaine (Benzocaine 20 % Oral Gel 9 Gm Tube) 1 appl MUCOUS MEM QID PRN; Protocol PRN Reason: tooth pain Last Admin: 08/10/21 19:06 Dose: 1 appl Documented by: Calcium Carbonate (Calcium Carbonate 750 Mg Tab.Chew) 750 mg PO Q6H PRN PRN Reason: Heartburn Last Admin: 08/10/21 03:19 Dose: 750 mg Documented by: Chlorpromazine HCl (Chlorpromazine Hcl 100 Mg Tablet) 100 mg PO DAILY [facility] Last Admin: 08/10/21 08:43 Dose: 100 mg Documented by: Chlorpromazine HCl (Chlorpromazine Hcl 25 Mg Tablet) 50 mg PO Q4H PRN PRN Reason: paranoia Last Admin: 08/10/21 18:29 Dose: 50 mg Documented by: Chlorpromazine HCl (Chlorpromazine Hcl 100 Mg Tablet) 300 mg PO BEDTIME [facility] Last Admin: 08/10/21 20:26 Dose: 200 mg Documented by: Chlorpromazine HCl (Chlorpromazine Hcl 100 Mg Tablet) 100 mg PO DAILY@1500 [facility] Last Admin: 08/10/21 15:42 Dose: Not Given Documented by: Clonidine HCl (Clonidine Hcl 0.1 Mg Tablet) 0.1 mg PO BEDTIME NOEL; Protocol Last Admin: 08/10/21 20:28 Dose: 0.1 mg Documented by: Cyanocobalamin (Cyanocobalamin (Vitamin B-12) 1,000 Mcg Tablet) 1,000 mcg PO DAILY [facility] Last Admin: 08/10/21 08:42 Dose: 1,000 mcg Documented by: Diphenhydramine HCl (Diphenhydramine Hcl 25 Mg Tablet) 50 mg PO BEDTIME PRN PRN Reason: inaomnia Last Admin: 08/09/21 20:04 Dose: 50 mg Documented by: Ibuprofen (Ibuprofen 800 Mg Tablet) 800 mg PO Q8H [facility] Last Admin: 08/10/21 16:26 Dose: 800 mg Documented by: Lorazepam (Lorazepam 1 Mg Tablet) 1 mg PO TID [facility] Last Admin: 08/10/21 20:27 Dose: 1 mg Documented by: Magnesium Hydroxide (Milk Of Magnesia 30 Ml Oral.Susp) 30 ml PO DAILY PRN PRN Reason: Constipation Melatonin (Melatonin 3 Mg Tablet) 10.5 mg PO BEDTIME PRN PRN Reason: Insomnia Last Admin: 08/10/21 20:36 Dose: 10.5 mg Documented by: Nicotine Polacrilex (Nicotine Polacrilex 2 Mg Gum) 4 mg BUCCAL Q2H PRN PRN Reason: Nicotine Cravings Vitamin D (Cholecalciferol (Vitamin D3) 25 Mcg Tablet) 50 mcg PO DAILY [facility] Last Admin: 08/10/21 08:42 Dose: 50 mcg Documented by: Allergies Allergies Allergy/AdvReac Type Severity Reaction Status Date / Time trazodone [TRAZODONE] AdvReac Unknown CONFUSION Unverified 06/07/20 19:13 Assessment & Plan Assessment & Plan (1) Chronic schizophrenia: Status: Acute Code(s): F20.9 - Schizophrenia, unspecified Assessment and Plan: No med changes were made during recent respite admission. Pt is on invega sustenna 156 mg [id number], next injection due 08/08/21. agrees to ativan 1 TID, thorazine 50 mg PRNs, and atarax 50 mg PRNs on first day in hospital, 08/06. also agrees to increase invega sustenna dosing to 234 mg as of 08/08. hydroxyzine PRNs increased to 75 mg each 08/07 per pt request. due to c/o blurry vision, hydroxyzine DC'ed as of 08/08. as of 08/09, thorazine dosing increased. sustenna 234 mg given 08/09. remains very delusional and paranoid, with threat delusions and h/o violence based on delusions. I spent minutes with the patient and/or on the patient floor today, greater than?50% of which was spent counseling/coordinating care. Reason for contiued inpatient stay Substantial Risk for: harm to others and rapid decompensation
[2021-08-11 06:00] VITALS: BP 113/55; PULSE 87; RESP 16; TEMP 37.1; O2SAT 98
[2021-08-11] MEDS: LORazepam 1 MG TABLET PO ×3 (06:11→21:11)
[2021-08-11] MEDS: chlorproMAZINE HCl 25 MG TABLET 50 MG PO ×2 (06:12→12:28)
[2021-08-11] MEDS: Cyanocobalamin (Vitamin B-12) 1,000 MCG TABLET 1000 MCG PO (08:55)
[2021-08-11] MEDS: chlorproMAZINE HCl 100 MG TABLET PO ×2 (08:55→14:49)
[2021-08-11] MEDS: Ibuprofen 800 MG TABLET PO ×2 (08:55→17:17)
[2021-08-11] MEDS: Cholecalciferol (Vitamin D3) 25 MCG TABLET 50 MCG PO (08:55)
[2021-08-11] MEDS: Acetaminophen 325 MG TABLET 975 MG PO (15:40)
--- NOTE | 2021-08-11 16:05 | P.PNPSI_ITS ---
Subjective Subjective Date of Service: 08/11/21 Reason For Visit: Psychosis Interim History: Seen and discussed with team. Pt received Invega Ana 08/09/21. Patient seen in his room. He feels depressed. Says he feels like he is being lied to by everyone. He says he tried reaching his [employer] workers and they have not returned his call. Says he wants to leave but has no where to go. He says all people care about is that he hears voices and no one cares about his depression. Doesn't want to try a medication with antidepressant effects because you will keep me here longer . He took 200 mg Thorazine last night and he didn't complain of hallucinations as he did the night before. He has not been aggressive today. More subdued and depressed. Ambivalent about DC. 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, headache GI: No c/o Nausea, Vomiting, diarrhea, constipation or heartburn -Denies hx of seizures -Denies hx of TBI/ concussion -Denies hx of cardiac issues Yes all other systems are reviewed and are negative Constitutional: Reports no additional constitutional complaints, Denies body ache(s), Denies chills, Denies fever(s), Denies headache(s) and Denies weakness Eyes: Reports no additional eye complaints and Denies change in vision Reports system reviewed and no additional complaints, except as documented, Denies dizziness, Denies headache(s), Denies nasal congestion, Denies nasal discharge and Denies neck pain Cardiovascular: Reports no additional cardiovascular complaints, Denies chest pain, Denies leg edema and Denies dyspnea Respiratory: Reports no additional respiratory complaints, Denies cough and Denies dyspnea Gastrointestinal: Reports no additional gastrointestinal complaints, Denies abd ominal pain, Denies diarrhea, Denies nausea and Denies vomiting Genitourinary: Denies urinary incontinence Musculoskeletal: Reports no additional musculoskeletal complaints, Denies back pain, Denies arthralgias, Denies joint swelling, Denies neck pain, Denies numbness and Denies tingling Skin/Breast: Reports system reviewed and no additional complaints, except as docu and Denies rash Reports system reviewed and no additional complaints, except as documented, Denies Abnormal speech present, Denies dizziness, Denies headache(s), Denies numbness, Denies tingling and Denies weakness Psychiatric: Reports paranoia, Reports homicidal ideation and Denies suicidal ideation Mental Status Exam Mental Status Exam Narrative: A&O. up and about on the unit. fair eye contact, attentive. No Tics or Tremors. No abnormal involuntary movements. Irritable, suspicious, difficult to engage. Non-pressured speech, spontaneous with regular rate and rhythm, normal volume and normal prosody. No prolonged speech latency or dysarthria. affect is constricted, variably intense, labile, depressed. no SI/HI/AVH expressed. Diagnostics Vital Signs (24Hr): Vital Signs - 24 hr 08/11/21 06:00 08/11/21 21:11 08/11/21 21:14 Temperature 98.8 F 97.8 F Pulse Rate 87 100 Respiratory Rate 16 Blood Pressure 113/55 L 123/75 Pulse Oximetry 98 97 Body Mass Index 24.1 Labs Results: 08/03/21 14:14 08/03/21 14:14 Medications Medications Current Medications Acetaminophen (Acetaminophen 325 Mg Tablet) 975 mg PO Q6H PRN PRN Reason: Headache/Pain Mild Scale (1-3) Last Admin: 08/11/21 15:40 Dose: 975 mg Documented by: Al Hydroxide/Mg Hydroxide (Magnesium Hydrox/Alum Hydrox 30 Ml Oral.Susp) 30 ml PO Q6H PRN PRN Reason: Heartburn/Nausea Last Admin: 08/10/21 03:19 Dose: 30 ml Documented by: Benzocaine (Benzocaine 20 % Oral Gel 9 Gm Tube) 1 appl MUCOUS MEM QID PRN; Protocol PRN Reason: tooth pain Last Admin: 08/10/21 19:06 Dose: 1 appl Documented by: Calcium Carbonate (Calcium Carbonate 750 Mg Tab.Chew) 750 mg PO Q6H PRN PRN Reason: Heartburn Last Admin: 08/10/21 03:19 Dose: 750 mg Documented by: Chlorpromazine HCl (Chlorpromazine Hcl 100 Mg Tablet) 100 mg PO DAILY [facility] Last Admin: 08/11/21 08:55 Dose: 100 mg Documented by: Chlorpromazine HCl (Chlorpromazine Hcl 25 Mg Tablet) 50 mg PO Q4H PRN PRN Reason: paranoia Last Admin: 08/11/21 12:28 Dose: 50 mg Documented by: Chlorpromazine HCl (Chlorpromazine Hcl 100 Mg Tablet) 300 mg PO BEDTIME COUNTS INCLUDE 234 BEDS AT [facility] Last Admin: 08/11/21 21:11 Dose: 300 mg Documented by: Chlorpromazine HCl (Chlorpromazine Hcl 100 Mg Tablet) 100 mg PO DAILY@1500 [facility] Last Admin: 08/11/21 14:49 Dose: 100 mg Documented by: Clonidine HCl (Clonidine Hcl 0.1 Mg Tablet) 0.1 mg PO BEDTIME NOEL; Protocol Last Admin: 08/11/21 21:11 Dose: 0.1 mg Documented by: Cyanocobalamin (Cyanocobalamin (Vitamin B-12) 1,000 Mcg Tablet) 1,000 mcg PO DAILY COUNTS INCLUDE 234 BEDS AT [facility] Last Admin: 08/11/21 08:55 Dose: 1,000 mcg Documented by: Diphenhydramine HCl (Diphenhydramine Hcl 25 Mg Tablet) 50 mg PO BEDTIME PRN PRN Reason: inaomnia Last Admin: 08/11/21 21:11 Dose: 50 mg Documented by: Ibuprofen (Ibuprofen 800 Mg Tablet) 800 mg PO Q8H COUNTS INCLUDE 234 BEDS AT [facility] Last Admin: 08/11/21 17:17 Dose: 800 mg Documented by: Lorazepam (Lorazepam 1 Mg Tablet) 1 mg PO TID COUNTS INCLUDE 234 BEDS AT [facility] Last Admin: 08/11/21 21:11 Dose: 1 mg Documented by: Magnesium Hydroxide (Milk Of Magnesia 30 Ml Oral.Susp) 30 ml PO DAILY PRN PRN Reason: Constipation Melatonin (Melatonin 3 Mg Tablet) 10.5 mg PO BEDTIME PRN PRN Reason: Insomnia Last Admin: 08/11/21 21:11 Dose: 10.5 mg Documented by: Nicotine Polacrilex (Nicotine Polacrilex 2 Mg Gum) 4 mg BUCCAL Q2H PRN PRN Reason: Nicotine Cravings Vitamin D (Cholecalciferol (Vitamin D3) 25 Mcg Tablet) 50 mcg PO DAILY COUNTS INCLUDE 234 BEDS AT [facility] Last Admin: 08/11/21 08:55 Dose: 50 mcg Documented by: Allergies Allergies Allergy/AdvReac Type Severity Reaction Status Date / Time trazodone [TRAZODONE] AdvReac Unknown CONFUSION Unverified 06/07/20 19:13 Assessment & Plan Assessment & Plan (1) Chronic schizophrenia: Status: Acute Code(s): F20.9 - Schizophrenia, unspecified Assessment and Plan: No med changes were made during recent respite admission. Pt is on invega sustenna 156 mg [id number], next injection due 08/08/21. agrees to ativan 1 TID, thorazine 50 mg PRNs, and atarax 50 mg PRNs on first day in hospital, 08/06. also agrees to increase invega sustenna dosing to 234 mg as of 08/08. hydroxyzine PRNs increased to 75 mg each 08/07 per pt request. due to c/o blurry vision, hydroxyzine DC'ed as of 08/08. as of 08/09, thorazine dosing increased. sustenna 234 mg given 08/09. 08/11: Would consider a mood stabilizer with antidepressant qualities if patient amenable. Maybe Lamictal, depakote or lithium if patient would be adherent. remains very delusional and paranoid, with threat delusions and h/o violence based on delusions. I spent minutes with the patient and/or on the patient floor today, greater than?50% of which was spent counseling/coordinating care. Reason for contiued inpatient stay Substantial Risk for: harm to others and rapid decompensation
[2021-08-11 21:11] VITALS: BP 123/75; PULSE 100
[2021-08-11] MEDS: diphenhydrAMINE HCL 25 MG TABLET 50 MG PO (21:11)
[2021-08-11] MEDS: Melatonin 3 MG TABLET 10.5 MG PO (21:11)
[2021-08-11] MEDS: chlorproMAZINE HCl 100 MG TABLET 300 MG PO (21:11)
[2021-08-11] MEDS: cloNIDine HCL 0.1 MG TABLET PO (21:11)
[2021-08-11 21:14] VITALS: TEMP 36.6; O2SAT 97
[2021-08-12] MEDS: chlorproMAZINE HCl 25 MG TABLET 50 MG PO (04:54)
[2021-08-12 08:24] VITALS: BP 129/71; PULSE 99; RESP 16; TEMP 37.1; O2SAT 98
[2021-08-12] MEDS: Cholecalciferol (Vitamin D3) 25 MCG TABLET 50 MCG PO (08:26)
[2021-08-12] MEDS: Ibuprofen 800 MG TABLET PO (08:26)
[2021-08-12] MEDS: chlorproMAZINE HCl 100 MG TABLET PO (08:26)
[2021-08-12] MEDS: LORazepam 1 MG TABLET PO (08:26)
[2021-08-12] MEDS: Cyanocobalamin (Vitamin B-12) 1,000 MCG TABLET 1000 MCG PO (08:26)
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
--- NOTE | 2021-08-12 11:08 | PC.NURSE ---
Patient is alert and oriented x 4. Patient is pleasant and cooperative with discharge. Patient acknowledges and understood discharge instructions. Patient is in a brighter and cheerful mood with congruent affect. speech is coherent and appropriate. Eye contact is within normal limits. Patient has been in contact with [facility] worker periodically throughput the morning. Patient stated that he is ready for discharge and wants to go to the hotel that they are paying for for him. Patient denies SI/HI/AH/VH. Patient states that he is feeling safe. Patient denies anxiety or depression. Patient denies any further complaints at this time.
== END 2021-08-12 11:15 | disposition home or self-care (01) | DRG 885 ==
LOC: HO.ED 19:28 → HO.PADLT16 08-05 16:00
PROVIDERS: Nurse Practitioner Family; Admitting Provider Psychiatry & Neurology Psychiatry; Emergency Provider Internal Medicine; Visit Provider Psychiatry & Neurology Psychiatry
DX: F20.9 Schizophrenia, unspecified (principal); R45.851 Suicidal ideations; Z20.822 Contact with and (suspected) exposure to COVID-19; F17.210 Nicotine dependence, cigarettes, uncomplicated; Z71.6 Tobacco abuse counseling; Z79.1 Long term (current) use of non-steroidal anti-inflammatories (NSAID); Z79.899 Other long term (current) drug therapy
CPT/HCPCS: 36415; 80048; 80076; 80143; 80179; 80307; 82077; 85025; 87635; 93005; 96372; 99285; J2426; Q0163

== ENCOUNTER 2022-09-03 09:59 | Emergency (ER) | payer MEDICARE, MEDICAID, SELFPAY ==
[2022-09-03 10:32] VITALS: BP 140/66; PULSE 85; RESP 16; TEMP 36.6; O2SAT 99; BMI 25.0
--- NOTE | 2022-09-03 10:41 | ED_ITS ---
HPI - General Adult General Chief complaint: General Medical Stated complaint: quest hernia Time Seen by Provider: 09/03/22 10:41 Source: patient Mode of arrival: ambulatory Limitations: no limitations History of Present Illness HPI narrative: Patient is a 26 year old assigned male at with a history of schizophrenia presenting to the emergency department today requesting follow up on his hernia. Patient states that 2 months ago he saw his PCP and was diagnosed with an abdominal hernia but wasn't given the surgeon's information to follow up with. Patient states that he would like that information and to have a modified work note. Patient denies any dizziness, lightheadedness, abdominal pain, nausea, vomiting, fever, chills, blurry vision, double vision, loss of vision, chest pain, difficulty breathing, shortness of breath, back pain, night sweats, pain with urination, increased urinary frequency, increased urinary urgency, blood in his urine or stool, syncope or a near syncopal episode, recent trauma or falls, bowel incontinence, bladder incontinence, bowel retention, bladder retention, or any other complaints at this time. Onset (ago): month(s) (1) Location: abdomen Severity: mild Severity scale (1-10): 2 Relieving factors: none Exacerbating factors: none Associated symptoms: denies other symptoms Treatments prior to arrival: none Related Data Home Medications Medication Instructions Recorded Confirmed chlorpromazine 100 mg tablet 1 tab PO DAILY 08/03/21 08/03/21 cholecalciferol (vitamin D3) 50 1 cap PO DAILY 08/03/21 08/03/21 mcg (2,000 unit) capsule (Vitamin D3) clonidine HCl 0.1 mg tablet 1 tab PO BEDTIME 08/03/21 08/03/21 cyanocobalamin (vitamin B-12) 1 tab PO DAILY 08/03/21 08/03/21 1,000 mcg tablet (Vitamin B-12) hydroxyzine pamoate 25 mg capsule 1 cap PO BID PRN Anxiety 08/03/21 08/03/21 ibuprofen 800 mg tablet 1 tab PO Q8H PRN Pain 08/03/21 melatonin 10 mg tablet 10 mg PO BEDTIME PRN Insomnia 08/03/21 08/03/21 amoxicillin 250 mg capsule 1 cap PO TID 08/05/21 08/05/21 Previous Rx's Medication Instructions Recorded amoxicillin 250 mg capsule 250 mg PO TID dental infection 08/12/21 prophylaxis 30 days #90 caps benzocaine 20 % mucosal gel 1 appl mucous membrane QID PRN 08/12/21 (Anbesol (benzocaine) Maximum tooth pain 30 days #9 grams Strength) chlorpromazine 100 mg tablet 300 mg PO BEDTIME 30 days #90 tabs 08/12/21 chlorpromazine 25 mg tablet 50 mg PO Q4H PRN paranoia 30 days 08/12/21 #120 tabs lorazepam 1 mg tablet (Ativan) 1 mg PO BID #10 tabs 08/12/21 paliperidone palmitate 234 mg/1.5 234 mg (1.5 mL) IM QMONTH #1.5 mL 08/12/21 mL intramuscular syringe (Invega Sustenna) Allergies Allergy/AdvReac Type Severity Reaction Status Date / Time risperidone [From Risperdal] AdvReac Involuntary Verified 09/03/22 10:32 Spasms Review of Systems Constitutional: Constitutional: Reports no additional constitutional complaints, Denies chills, Denies fever(s) and Denies night sweats Eyes: Eyes: Reports no additional eye complaints, Denies blurry vision, Denies change in vision, Denies diplopia, Denies eye discharge, Denies loss of vision and Denies eye pain ENT: Denies dizziness Cardiovascular: Cardiovascular: Reports no additional cardiovascular complaints, Denies chest pain, Denies lightheadedness, Denies Loss of Consciousness and Denies dyspnea Respiratory: Respiratory: Reports no additional respiratory complaints and Denies dyspnea Gastrointestinal: Gastrointestinal: Reports no additional gastrointestinal complaints, Denies abdominal pain, Denies melena, Denies hematochezia, Denies change in bowel habits and Denies change in stool character Comments: abdominal hernia Genitourinary: Genitourinary: Reports no additional male genitourinary complaints, Denies hematuria, Denies oliguria, Denies difficulty urinating, Denies dysuria, Denies urinary frequency, Denies urinary hesitancy, Denies urinary incontinence and Denies urinary urgency Musculoskeletal: Musculoskeletal: Reports no additional musculoskeletal complaints, Denies numbness and Denies tingling Neurologic: Denies dizziness, Denies loss of vision, Denies numbness and Denies tingling Psychiatric: Psychiatric: Reports no additional psychiatric complaints Endocrine: Endocrine: Reports no additional endocrine complaints Hematologic/Lymphatic: Hematologic/Lymphatic: Reports no additional hematologic/lymphatic complaints Allergic/Immunologic: Allergic/Immunologic: Reports no additional allergic/immunologic complaints [facility] Past Medical History Attestation statement: The following information was validated with the patient. Source: old records reviewed and nursing notes reviewed Social History Social History Household Members: None Do you presently have visiting nurse or other home services: No Patient Tobacco Use Status: Current someday Tobacco user Tobacco use type: Cigarette Cigarette Packs Per Day: 1 Cigarettes Per Day: 20.0 Second Hand Smoke Exposure: Yes Substance Use Type: Marijuana Advance Directives: No service: No Sexual orientation: Don't Know Physical Exam ED Vital Signs: Vital Signs - 24 hr 09/03/22 10:32 Temperature 98 F Pulse Rate 85 Respiratory Rate 16 Blood Pressure 140/66 H Pulse Oximetry 99 Oxygen Delivery Method Room Air BMI result Body Mass Index 25.0 Const General: cooperative, no acute distress, alert and awake Nutritional Appearance: well nourished Orientation/consciousness: patient oriented x3 Limitations: no limitations HENMT Head: Yes normal to inspection and Yes atraumatic Ears: hearing grossly normal bilaterally and external ears normal General nose exam: Normal external nose present, no nasal discharge noted and no epistaxis Face and sinus: Yes normal facial exam, No abrasion and No laceration Mouth: Normal oral and palatal mucosa present, no drooling and no muffled voice Eyes General: appearance normal, both eyes and all related structures Periorbital: periorbital findings normal Eyelids: Yes eyelids normal Conjunctivae: conjunctivae normal Pupils: Equal, round and reactive pupils present EOM: EOMs intact bilaterally Neck Neck: Yes normal visual inspection, Yes full ROM and Yes no lymphadenopathy Chest Chest palpation & inspection: normal inspection of the chest Resp Effort & Inspection: normal respiratory effort and able to speak in complete sentences Auscultation: clear to auscultation bilaterally Cardio Rate: regular rate Rhythm: regular rhythm GI Inspection: Yes normal to inspection Palpation (GI): Soft to palpation, not firm, nontender, no guarding and not rigid Neuro General: patient oriented x3 and moves all extremities Cranial nerves: Yes Equal, round and reactive pupils present Cognition (Neuro): normal cognition Motor exam (neuro): 5/5 motor strength present throughout Sensory Exam: Normal double simultaneous stimulation for sensation Coordination: [id number] test normal Extrem General: Yes normal to inspection, Yes full ROM and Yes capillary refill normal Psych Appearance: grossly normal Mental Status: mental status grossly normal Affect: normal affect Attitude: cooperative Thought process: Normal thought process present Thought content: Normal thought content present Insight: Good insight present (Psych) Medical Decision Making Medical Decision Making MDM Narrative: Patient is a 26 year old assigned male at with a history of schizophrenia presenting to the emergency department today requesting a modified work note and follow up information on his abdominal hernia. Patient's physical exam was unremarkable. I did not appreciate a hernia on exam. Upon reviewing the jessenia paredes's medical record, he has an appointment with the general surgeons office on 09/05/2022 at 11am. I explained my physical exam findings to the patient. I answered all questions asked by the patient. I informed the patient of his appointment on 09/05/2022 at 11am and provided him with the provider information and address. I stressed the importance of the patient taking his medication as prescribed. I stressed the importance of the patient following up with his primary care provider and a general surgeon. I stressed the importance of the patient returning to the emergency department immediately if his symptoms were to worsen or if he were to develop any dizziness, shortness of breath, difficulty breathing, chest pain, blurry vision, loss of vision, nausea, vomiting, abdominal pain, fever, chills, back pain, or any other complaints. Patient verbalized agreement and understanding with this treatment plan and discharge. Differential Diagnosis Differential Diagnoses: The differential diagnosis associated with the presentation includes abdominal hernia External Record Review External record reviewed: Office record (primary care provider notes) Discharge Plan Discharge Clinical Impression: Abdominal hernia Patient Disposition: Home, Self-Care Instructions: Ventral Hernia (ED) Additional Instructions: Follow up with your primary care provider. Go to your general surgery appointment on 09/05/2022 as scheduled. Return to the emergency department immediately if your symptoms worsen or if you develop any dizziness, shortness of breath, difficulty breathing, chest pain, blurry vision, loss of vision, nausea, vomiting, abdominal pain, fever, chills, back pain, or any other complaints. Prescriptions: No Action clonidine HCl 0.1 mg tablet 1 tab PO BEDTIME ibuprofen 800 mg tablet 1 tab PO Q8H PRN (Reason: Pain) chlorpromazine 100 mg tablet 1 tab PO DAILY hydroxyzine pamoate 25 mg capsule 1 cap PO BID PRN (Reason: Anxiety) cyanocobalamin (vitamin B-12) [Vitamin B-12] 1,000 mcg tablet 1 tab PO DAILY cholecalciferol (vitamin D3) [Vitamin D3] 50 mcg (2,000 unit) capsule 1 cap PO DAILY melatonin 10 mg Tablet 10 mg PO BEDTIME PRN (Reason: Insomnia) amoxicillin 250 mg capsule 1 cap PO TID chlorpromazine 25 mg Tablet 50 mg PO Q4H PRN (Reason: paranoia) 30 Days Qty: 120 0RF Anbesol (benzocaine) Max Str 20 % Gel 1 appl mucous membrane QID PRN (Reason: tooth pain) 30 Days Qty: 9 1RF Protocol: Apply to: Apply to: tooth chlorpromazine 100 mg Tablet 300 mg PO BEDTIME 30 Days Qty: 90 0RF lorazepam [Ativan] 1 mg tablet 1 mg PO BID Qty: 10 0RF Rx Instructions: for 5 days only Invega Sustenna 234 mg/1.5 mL syringe 234 mg IM QMONTH Qty: 1.5 0RF Rx Instructions: due 09/06. hold for staff to cloth picker. amoxicillin 250 mg capsule 250 mg PO TID 30 Days Qty: 90 0RF Referrals: [facility] General Surgeons [Provider Group] (Follow up on 09/05/2022 as scheduled. ) Claudia Ballard NP [Primary Care Provider] - Stand Alone Forms: Work/School Release Interventions: ED Discharge Assessment Last Done: 09/03/22 10:53 Discharge Date/Time: 09/03/22 10:54 Print Language: [place]
--- NOTE | 2022-09-03 10:53 | PC.NURSE ---
PT WAS SEEN BY PROVIDER AND DISCHARGED BY PROVIDER. PAPERWORK GIVEN TO PATIENT BY PROVIDER
== END 2022-09-03 10:54 | disposition home or self-care (01) ==
PROVIDERS: Emergency Provider Student in an Organized Health Care Education/Training Program; PCP Nurse Practitioner Primary Care
DX: K46.9 Unspecified abdominal hernia without obstruction or gangrene (principal); F17.210 Nicotine dependence, cigarettes, uncomplicated; F12.90 Cannabis use, unspecified, uncomplicated
CPT/HCPCS: 99282

== ENCOUNTER → 2022-09-04 14:12 | Outpatient (BNVA) | payer MEDICARE, MEDICAID, SELFPAY | PROVIDERS: PCP Nurse Practitioner Primary Care; Visit Provider Surgery | DX: R10.9 Unspecified abdominal pain (principal); R11.2 Nausea with vomiting, unspecified; F20.9 Schizophrenia, unspecified; F12.10 Cannabis abuse, uncomplicated; F17.200 Nicotine dependence, unspecified, uncomplicated | CPT/HCPCS: 99202 ==

== ENCOUNTER 2022-11-07 09:54 | Outpatient (REF) | payer MEDICARE, SELFPAY ==
--- NOTE | ~2022-11-07 | US_ITS ---
EXAMINATION: US ABDOMEN COMPLETE CLINICAL INFORMATION: Right upper quadrant and right lower quadrant pain. COMPARISON: None TECHNIQUE: Real-time imaging of the abdominal viscera. FINDINGS: PANCREAS: Normal. ABDOMINAL AORTA: The proximal, mid, and distal segments are normal in caliber. INFERIOR VENA CAVA: Visualized portions are normal. LIVER: Normal. The liver is normal in size. The liver contour is normal. Parenchymal echogenicity is normal. No focal hepatic lesion. There is no intrahepatic biliary duct dilatation seen. GALLBLADDER: Partially contracted. No evidence of cholelithiasis. The gallbladder wall thickness is within the upper limits of normal. No pericholecystic free fluid. Documentation of Story's sign was not obtained by technologist. COMMON BILE DUCT: Normal in caliber measuring 0.6 cm in diameter. RIGHT KIDNEY: Normal. No hydronephrosis. No renal calculi or focal parenchymal lesions. The kidney measures 10.3 cm in maximum dimension. LEFT KIDNEY: Normal. No hydronephrosis. No renal calculi or focal parenchymal lesions. The kidney measures 11.1 cm in maximum dimension. SPLEEN: Normal. The spleen measures 8.5 cm in maximum dimension. FREE FLUID: None. US/US abdomen complete IMPRESSION: No acute sonographic abnormalities to explain the patient's symptoms.
== END 2022-11-07 09:55 | disposition home or self-care (01) ==
LOC: HO.US 09:54
PROVIDERS: Visit Provider Nurse Practitioner Primary Care
DX: R10.84 Generalized abdominal pain (principal)
CPT/HCPCS: 76700

== ENCOUNTER 2024-08-02 15:55 | Outpatient (REF) | payer MEDICARE, SELFPAY ==
[2024-08-02 18:07] LABS: Hematocrit 41.1 % (42.0-52.0); Hemoglobin 13.6 g/dl (14.0-18.0); Mean Corpuscular HGB Conc 33.1 g/dl (31.0-36.0); Mean Corpuscular Hemoglobin 29.1 pg (27.0-33.0); Platelet Count 316 X10*3/uL (160-400); Red Blood Count 4.67 X10*6/uL (4.60-5.80); Red Cell Distribution Width 11.7 % (11.0-16.0); White Blood Count 6.9 X10*3/uL (4.8-10.8)
[2024-08-02 18:34] LABS: Alanine Aminotransferase 12 U/L (0-40); Albumin Level 4.4 g/dL (3.5-5.0); Alkaline Phosphatase 73 U/L (39-117); Anion Gap 16 (12-20); Aspartate Amino Transferase 29 U/L (5-37); Bilirubin Total 0.5 mg/dL (0.0-1.0); Blood Urea Nitrogen 7 mg/dL (9-16); Carbon Dioxide 26 mmol/L (22-29); Chloride 102 mmol/L (96-108); Cholesterol 101 mg/dL (<200); Estimated Glomerular Filt Rate > 60; Glucose Random 79 mg/dL (60-115); HDL Cholesterol 43 mg/dL (>40); LDL Cholesterol Calculated 50 mg/dL (<100); Potassium 3.6 mmol/L (3.3-5.1); Sodium 140 mmol/L (135-145); Total Protein 7.7 g/dL (6.5-8.0); Triglycerides 44 mg/dL (<150)
[2024-08-02 18:44] LABS: TSH reflex Free T4 0.81 uIU/mL (0.32-4.0); Vitamin D 25-OH Total 42.4 ng/mL (>30)
[2024-08-02 18:59] LABS: Folate 7.7 ng/mL (> or = 4.0); Vitamin B12 717 pg/mL (200-900)
[2024-08-03 02:42] LABS: CT PCR NOT DETECTED (Not Detect.); NG PCR NOT DETECTED (Not Detect.)
[2024-08-03 07:26] LABS: Estimated Average Glucose 105 mg/dL; Hemoglobin A1c % 5.3 % (<6.0); Total Hemoglobin (HGBA1C) 3642.9687 umol/L
[2024-08-03 08:10] LABS: HBS Num1 2.46 mIU/mL (0-7.99); HBc Num1 0.12 S/CO (0.00-0.79); HIV AB/AG Nonreactive (Nonreactive); HIV Num 1 0.06 S/CO (0.00-0.99); Hepatitis B Core Antibody Nonreactive (Nonreactive); Hepatitis B Surface Antigen Negative (Negative); ~HepC Num1 0.07 S/CO (0.00-0.79); ~Hepatitis B Surface Antibody NONREACTIVE (Nonreactive); ~Hepatitis C Antibody Nonreactive (Nonreactive)
[2024-08-03 08:25] LABS: Syphilis Screen Nonreactive (Nonreactive)
[2024-08-04 09:43] LABS: Iron 25 mcg/dL (45-160); Percent Iron Saturation 9 % (15-50); Total Iron Binding Capacity 267 mcg/dL (228-428); Unsaturated Iron Binding 242 ug/dL
[2024-08-04 09:58] LABS: Ferritin 62 ng/mL (20-250)
== END 2024-08-02 15:56 | disposition home or self-care (01) ==
LOC: HO.HHCL 15:55
PROVIDERS: Visit Provider Student in an Organized Health Care Education/Training Program
DX: Z00.00 Encounter for general adult medical examination without abnormal findings (principal); D64.9 Anemia, unspecified; Z13.1 Encounter for screening for diabetes mellitus
CPT/HCPCS: 36415; 80053; 80061; 82306; 82607; 82728; 82746; 83036; 83540; 84443; 85027; 86704; 86706; 86780; 86803; 87340; 87389; 87491; 87591

== ENCOUNTER 2025-08-18 12:20 | Outpatient (AMB) | payer MEDICARE, SELFPAY ==
[2025-08-18 12:25] VITALS: BP 112/80; PULSE 114; TEMP 36.8; O2SAT 98; BMI 23.6
--- NOTE | 2025-08-18 12:25 | AM.OFFWIN_ITS ---
Intake Vital Signs 08/18/25 12:25 08/18/25 13:14 Height 5 ft 3 in Weight 133 lb BMI 23.6 BP 112/80 Blood Pressure Location Lt brachial Position Sitting Pulse 114 H 98 Pulse Source Pulse Oximeter Pulse Oximeter Temp 98.2 F Temp Source Oral Pulse Oximetry (%) 98 Oxygen Delivery Method Room Air Intake Visit Reasons: EP Rt hand injury, swelling, work note Intake Note: pt presents with right hand pain and swelling 2 days ago after punching a wall Patient Tobacco Use Status: Current someday Tobacco user Allergies risperidone (From Risperdal) Adverse Reaction (Verified 08/18/25 12:32) Involuntary Spasms Do you need a note to return to daycare/school/sports/work: Yes HPI HPI Comments History of Present Illness Details History of Present Illness The patient is a 29 year old male presenting with right hand pain and swelling following trauma. - The patient reports sustaining an inju ry to the right hand after punching a wall out of frustration on the day before [employer]. - Pain is reported to be acute in onset, with location on the ulnar side of the hand, particularly affecting the pinky finger. - He notes that he has normal range of m otion of the hand but creating a fist causes pain along the hand - The patient began managing the injury by icing it about two times throughout the day and wrapping it with a towel or a blanket during sleep. - He reports some tingling in the affect ed digit, otherwise denies any numbness. Review of Systems - Musculoskeletal: Reports acute onset r ight hand pain and swelling following trauma. Denies pain in the wrist or forearm. - Neurological: Negative for numbness, w eakness Physical Exam General Appearance: Normal appearance, well developed. No acute distress Head: Normocephalic, atraumatic Pulmonary: No respiratory distress. Speaking in full sentences Musculoskeletal: Swelling noted along the dorsum of the right hand. No open wounds or erythema noted. Tenderness to palpation overlying the 3rd, 4th, and 5th metacarpals. Normal range of motion of the hand and digits. Hand auditor medical claims strength equal bilaterally. Cap refill < 2 seconds. Sensation intact and equal along the distal digits Mental Status: Alert and Oriented x 3 Psychiatric: Normal mood. Normal affect. [facility] Social History Household Members: None Do you presently have visiting nurse or other home services: No Patient Tobacco Use Status: Current someday Tobacco user Tobacco use type: Cigarette Cigarette Packs Per Day: 1 Cigarettes Per Day: 20.0 Second Hand Smoke Exposure: Yes Substance Use Type: Marijuana service: No Sexual orientation: Don't Know Physical Exam Vital Signs: Last Vital Signs Temp 98.2 F 08/18/25 12:25 Pulse 98 08/18/25 13:14 BP 112/80 08/18/25 12:25 Pulse Ox 98 08/18/25 12:25 Oxygen Delivery Method Room Air 08/18/25 12:25 BMI result Body Mass Index 23.6 Assessment & Plan Assessment & Plan (1) Injury of right hand: Code(s): S69.91XA - Unspecified injury of right wrist, hand and finger(s), initial encounter Qualifiers: Encounter type: initial encounter Qualified Code(s): S69.91XA - Unspecified injury of right wrist, hand and finger(s), initial encounter Plan - Patient reports right hand pain after punching a wall - He was noted to have swelling and tenderness to palpation overlying the 3rd to 5th right metacarpals - Radiology impression of right hand x-ray documented a subtle angulation along the distal 3rd of the scaphoid, however may be related to positioning/technique. As patient's pain is primarily localized to the ulnar aspect of the hand and he has no significant tenderness to palpation overlying the scaphoid, lower concern for scaphoid fracture. No metacarpal fractures noted. - He was advised to continue icing the injury every 1-2 hours for 10 to 15 minutes to help reduce swelling and inflammation. - An KAREEN wrap was applied to help with swelling. - The patient was instructed to take Tylenol as needed for pain relief and was provided with a work excuse for two days to facilitate rest and recovery - Advised F/U with PCP if no improvement in symptoms over the next few days Patient was informed and verbally consented to the use of an ambient scribe for clinic note documentation during the visit. Orders: Orders XR hand RT min 3V 08/18/25 S69.91XA - Unspecified injury of right wrist, hand and finger(s), initial encounter Coding Level of Care Code Est Pt Level 3 (95566) Diagnoses Injury of right hand, initial encounter S69.91XA Encounter type: initial encounter
[2025-08-18 13:14] VITALS: PULSE 98
== END 2025-08-18 13:20 | disposition home or self-care (01) ==
PROVIDERS: PCP Nurse Practitioner Primary Care; Visit Provider Family Medicine
DX: S69.91XA Unspecified injury of right wrist, hand and finger(s), initial encounter (principal)

== ENCOUNTER 2025-08-18 12:20 | Outpatient (REF) | payer MEDICARE, SELFPAY ==
--- NOTE | ~2025-08-18 | XR_ITS ---
EXAMINATION: XR HAND, RIGHT CLINICAL INFORMATION: S69.91XA - Unspecified injury of right wrist, hand and finger(s), initia... COMPARISON: None available. TECHNIQUE: PA, lateral, and oblique views of the right hand. FINDINGS: Bone mineralization is normal. There is a subtle angulation of the lateral cortex of the distal third of the scaphoid. This may be related to positioning. Correlate for focal symptoms. No acute fracture is otherwise seen. Alignment is anatomic. No significant joint space narrowing. No erosions. No abnormal soft tissue calcification. No radiopaque foreign body is identified. No soft tissue emphysema. XR/XR hand RT min 3V IMPRESSION: Subtle angulation of the lateral cortex of the distal third of the scaphoid. This may be related to positioning/technique. Correlate for focal symptoms. If there is clinical concern for fracture, recommend wrist/scaphoid x-rays. Electronically signed by: Enrique Gimenez MD 08/18/2025 01:16 PM KIN[facility] MORILLO
== END 2025-08-18 12:21 | disposition home or self-care (01) ==
LOC: HO.HMGCX 12:20
PROVIDERS: PCP Nurse Practitioner Primary Care; Visit Provider Family Medicine
DX: S69.91XA Unspecified injury of right wrist, hand and finger(s), initial encounter (principal); W22.09XA Striking against other stationary object, initial encounter
CPT/HCPCS: 73130; 99212

== ENCOUNTER → 2025-08-18 12:50 | Outpatient (BNV) | payer MEDICARE, SELFPAY | PROVIDERS: PCP Nurse Practitioner Primary Care; Visit Provider Radiology Diagnostic Ultrasound | DX: S62.011A Displaced fracture of distal pole of navicular [scaphoid] bone of right wrist, initial encounter for closed fracture (principal) | CPT/HCPCS: 73130 ==